=== PATIENT | female | born 1960 | race Caucasian/White ===

== ENCOUNTER → 2021-04-18 | Day surgery (SDC) | payer OTHER ==
[~2021-04-18] MED LIST: Ketamine 200 MG/20 ML MDV ONE; Lactated Ringers 1,000 ML IV SCH; Midazolam 1 MG/ML 2 ML SDV ONE; Propofol 200 MG/20 ML SDV ONE; fentaNYL 100 MCG/2 ML SDV ONE
--- NOTE | 2021-04-18 14:12 | OR ---
DATE OF OPERATION: 04/18/2021 PREOPERATIVE DIAGNOSIS: SCREENING COLONOSCOPY. POSTOPERATIVE DIAGNOSIS: SCREENING COLONOSCOPY. SURGEON: Jadon Villalta MD PROCEDURE: FULL-LENGTH SCREENING COLONOSCOPY. ANESTHESIA: MAC. COMPLICATIONS: None. SPECIMEN: None. FINDINGS: 1. Full-length screening colonoscopy. 2. Minimal sigmoid diverticulosis. RECOMMENDATIONS: Followup colonoscopy every 10 years. INDICATIONS: The patient was seen by her primary provider for a physical. It has been 20 years since her last endoscopy. She was sent for a screening colonoscopy. DESCRIPTION OF PROCEDURE: The patient was prepped and draped, placed in the left lateral decubitus position. A lubricated Olympus colonoscope was inserted and easily advanced to the cecum. Direct visualization of the ileocecal valve and appendiceal orifice was accomplished. The bowel prep was excellent. Upon withdrawal of the scope, throughout the entire length of the colon, I could find no polyps, masses, ulceration, or bleeding sites. No vascular abnormalities or signs of colitis. The patient did have a few scattered diverticula in the sigmoid colon, but very minimal. The rectal vault appeared benign. Retroflexion showed some perianal skin tags, otherwise benign. Air was suctioned and the scope removed without complication. PEGGY/ESTER /[id number]
== END ==
LOC: CC.SDS 09:25
PROVIDERS: ATTEND Family Medicine
DX: Z12.11 Encounter for screening for malignant neoplasm of colon (principal); K57.30 Diverticulosis of large intestine without perforation or abscess without bleeding; Z98.890 Other specified postprocedural states; Z88.2 Allergy status to sulfonamides
CPT/HCPCS: 45378; J7120; 00812; J2250; J2704; J3010

== ENCOUNTER 2022-09-20 11:38 | Emergency (ER) | payer OTHER ==
[2022-09-20] MEDS ORDERED: Sodium Chloride 0.9% 10 ML Syringe FLUSH PRN ×2 (11:50→11:51)
[2022-09-20] MEDS: Aspirin 81 MG Tab.Chew PO ONE (11:59)
[2022-09-20 12:00] LABS: CHLORIDE,CL 104 mEq/L (98-106); SODIUM,NA 139 mEq/L (136-145)
[2022-09-20 12:01] LABS: ESTIMATED GFR 64 mL/min (>=60)
[2022-09-20] MEDS: Sodium Chloride 0.9% 500 ML IV SCH (12:03)
[2022-09-20 12:04] LABS: PTT,PARTIAL THROMBOPLSTIN TIME 23.4 SEC (23.2-32.3)
[2022-09-20] MEDS: predniSONE 20 MG Tab PO STA (13:29)
== END 2022-09-20 13:40 | disposition home or self-care (01) ==
LOC: CC.ED 11:38
DX: G51.0 Bell's palsy (principal); Z88.1 Allergy status to other antibiotic agents; Z88.2 Allergy status to sulfonamides; Z79.899 Other long term (current) drug therapy; Z20.822 Contact with and (suspected) exposure to COVID-19
CPT/HCPCS: 36415; 70450; 80048; 81001; 82947; 85025; 85610; 85730; 93005; 93010; 96360; 99284; 99284-25; A9270-GY; J7040; J7512; U0002